=== PATIENT | female | born 1990 | race Caucasian/White ===

== ENCOUNTER 2018-12-05 13:46 | Emergency (ER) | payer OTHER ==
[~2018-12-05] VITALS: Ht 157.5 cm; Wt 65.1 kg
[~2018-12-05 13:46] MED LIST: CYCL10TA7 PO; DICY10CA40 PO; IBUP-1542 PO; NO MEDS; OMEP20CA9 PO; RANI150T35 PO; TRAM50TA2 PO; ZOF8 PO
[2018-12-05 13:50] VITALS: Ht 157.5 cm; Wt 65.1 kg
[2018-12-05] MEDS ORDERED: morphine 2 MG INJ IV STA (14:12)
[2018-12-05] MEDS ORDERED: ONDANSETRON 4 MG INJ IV STA (14:12)
[2018-12-05] MEDS ORDERED: SOD CHLORIDE 0.9% 1,000 ML IV STA (14:12)
[2018-12-05] MEDS ORDERED: FAMOTIDINE 20 MG INJ IV STA (14:12)
--- NOTE | 2018-12-05 15:20 | ERD ---
ER Documentation Chief Complaint Chief Complaint RUQ AP x1 day w/ n/v/d today. hx of gallstones HPI 28-year-old female presents with generalized abdominal pain that she is had for 1 day however she states she has chronic abdominal pain has a history of gallstones. She is had some nausea and vomiting as well as diarrhea. No fever. No alleviating or exacerbating factors. Denies possibility of . No dysuria hematuria or frequency. ROS All systems reviewed and are negative except as per history of present illness. Medications Home Meds Active Scripts Dicyclomine HCl (Dicyclomine HCl) 10 Mg Capsule, 10 MG PO TID PRN for ABDOMINAL CRAMPING, #20 CAP Prov:ALEC NIETO PA-C 12/05/18 Ibuprofen* (Motrin*) 600 Mg Tab, 600 MG PO Q6, #20 TAB Prov:NUHA DUKE MD 01/13/16 Cyclobenzaprine Hcl* (Cyclobenzaprine Hcl*) 10 Mg Tablet, 10 MG PO TID, #15 TAB Prov:NUHA DUKE MD 01/13/16 Tramadol HCl (Tramadol HCl) 50 Mg Tablet, 50 MG PO Q4 PRN for PAIN, #20 TAB Prov:NUHA DUKE MD 01/13/16 Ranitidine Hcl* (Zantac*) 150 Mg Tablet, 150 MG PO BID PRN for PAIN, #30 TAB Prov:CYN WEI PA-C 07/29/15 Omeprazole* (Prilosec*) 20 Mg Capsule.dr, 20 MG PO DAILY, #30 CAP Prov:CYN WEI PA-C 07/29/15 Ondansetron Hcl* (Zofran* ODT) 8 mg -ODT Tab.disper, 8 MG PO Q6 PRN for NAUSEA AND/OR VOMITING, #10 TAB Prov:CYN WEI PA-C 07/29/15 Reported Medications [No Meds] No Conflict Check 05/17/10 Allergies Allergies: Coded Allergies: No Known Drug Allergy (Verified Allergy, Unknown, 07/29/15) PMhx/Soc History of Surgery: No Anesthesia Reaction: No Hx Neurological Disorder: No Hx Respiratory Disorders: No Hx Cardiac Disorders: No Hx Psychiatric Problems: No Hx Miscellaneous Medical Probl: No Hx Alcohol Use: No Hx Substance Use: No Hx Tobacco Use: No FmHx Family History: No diabetes Physical Exam Vitals Vital Signs Date Temp Pulse Resp B/P (MAP) Pulse Ox O2 O2 Flow FiO2 Time Delivery Rate 12/05/18 99.1 94 16 142/73 98 13:50 (96) Physical Exam INITIAL VITAL SIGNS: Reviewed by me RESPIRATORY: Clear to auscultation bilaterally. Symmetric chest wall rise. No wheezing or rales. No accessory muscle use. CV: Regular rate and rhythm. No murmurs, rubs, or gallops. ABDOMEN: Soft, non-distended. Nontender. Negative [place]. Negative McBurneys point tenderness. No CVA tenderness bilaterally. No guarding. No rebound. Result Diagram: 12/05/18 1418 12/05/18 1418 Results 24 hrs Laboratory Tests Test 12/05/18 14:18 12/05/18 14:23 White Blood Count 7.9 10^3/ul Red Blood Count 4.30 10^6/ul Hemoglobin 12.2 g/dl Hematocrit 36.9 % Mean Corpuscular Volume 85.8 fl Mean Corpuscular Hemoglobin 28.4 pg Mean Corpuscular Hemoglobin Concent 33.1 g/dl Red Cell Distribution Width 12.1 % Platelet Count 341 10^3/UL Mean Platelet Volume 9.6 fl Immature Granulocytes % 0.100 % Neutrophils % 56.1 % Lymphocytes % 31.3 % Monocytes % 9.9 % Eosinophils % 2.2 % Basophils % 0.4 % Nucleated Red Blood Cells % 0.0 /100WBC Immature Granulocytes # 0.010 10^3/ul Neutrophils # 4.4 10^3/ul Lymphocytes # 2.5 10^3/ul Monocytes # 0.8 10^3/ul Eosinophils # 0.2 10^3/ul Basophils # 0.0 10^3/ul Nucleated Red Blood Cells # 0.0 10^3/ul Urine Color YELLOW Urine Clarity CLOUDY Urine pH 8.0 Urine Specific [place] 1.015 Urine Ketones NEGATIVE mg/dL Urine Nitrite NEGATIVE mg/dL Urine Bilirubin NEGATIVE mg/dL Urine Urobilinogen NEGATIVE mg/dL Urine Leukocyte Esterase NEGATIVE [place]/ul Urine Microscopic RBC 1 /HPF Urine Microscopic WBC 8 /HPF Urine Squamous Epithelial Cells FEW /HPF Urine Hemoglobin NEGATIVE mg/dL Urine Glucose NEGATIVE mg/dL Urine Total Protein NEGATIVE mg/dl Sodium Level 142 mmol/L Potassium Level 3.7 mmol/L Chloride Level 105 mmol/L Carbon Dioxide Level 28 mmol/L Anion Gap 9 Blood Urea Nitrogen 12 mg/dl Creatinine 0.69 mg/dl Est Glomerular Filtrat Rate mL/min > 60 mL/min Glucose Level 111 mg/dl Calcium Level 9.9 mg/dl Total Bilirubin 0.4 mg/dl Direct Bilirubin 0.00 mg/dl Indirect Bilirubin 0.4 mg/dl Aspartate Amino Transf (AST/SGOT) 22 IU/L Alanine Aminotransferase (ALT/SGPT) 29 IU/L Alkaline Phosphatase 90 IU/L Total Protein 8.2 g/dl Albumin 4.5 g/dl Globulin 3.70 g/dl Albumin/Globulin Ratio 1.21 Lipase 205 U/L POC Beta HCG, Qualitative NEGATIVE Current Medications Medications Dose Sig/[place] Start Time Status Last (Trade) Ordered Route PRN Stop Time Admin Dose Reason Admin Sodium 1,000 ml @ Q1H STAT 12/05/18 DC 12/05/18 Chloride 1,000 mls/hr IV 14:12 14:22 12/05/18 15:11 Morphine 2 mg ONCE STAT 12/05/18 DC 12/05/18 Sulfate IV 14:12 14:22 (morphine) 12/05/18 14:14 Ondansetron 4 mg ONCE STAT 12/05/18 DC 12/05/18 HCl (Zofran IV 14:12 14:22 Inj) 12/05/18 14:14 Famotidine 20 mg ONCE STAT 12/05/18 DC 12/05/18 (Pepcid Iv) IV 14:12 14:22 12/05/18 14:14 Procedures/MDM The differential diagnosis includes but is not limited to appendicitis, cholelithiasis, cholecystitis, pancreatitis, hepatitis, gastritis, peptic ulcer disease, bowel obstruction, diverticulitis, renal disease including stones, torsion, AAA, pyelonephritis, and others. Laboratory analysis shows no evidence of acute emergent abnormality. No evidence of significant leukocytosis suggesting systemic infection or severe anemia. No evidence of acute renal or liver failure, no evidence of severe alkalosis or acidosis. CT negative. Patient discharged with Bentyl. Patient counseled regarding my diagnostic impression and care plan. Prior to discharge all questions answered. Pt agrees with treatment plan and understands strict return precautions. Pt is instructed to follow up with primary care provider within 24-48 hours. Precautionary instructions provided including instructions to return to the ER if not improving or for any worsening or changing symptoms or concerns. Departure Diagnosis: Primary Impression: Abdominal pain Condition: Stable Patient Instructions: Abdominal Pain Additional Instructions: Call your primary care doctor TOMORROW for an appointment during the next 1-2 days.See the doctor sooner or return here if your condition worsens before your appointment time. ALEC NIETO PA-C Dec 05, 2018 15:20
[2018-12-05 15:26] VITALS: BP 116/62; PULSE 72; RESP 18
== END 2018-12-05 15:56 | disposition home or self-care (01) ==
LOC: FTE 13:46
DX: R10.11 Right upper quadrant pain (principal); R11.2 Nausea with vomiting, unspecified
CPT/HCPCS: 36415; 74176; 80053; 81001; 81025; 83690; 85025; 96361; 96374; 96375; J2270; J2405; J7030; Z7502; Z7610

== ENCOUNTER 2019-01-09 13:49 | Emergency (ER) | payer OTHER ==
[~2019-01-09] VITALS: Wt 78.9 kg
[~2019-01-09 13:49] MED LIST changes: +ASPI1TAB31 PO; +BUTA1CAP38 PO; +NITR-58 PO; +RANI-535 PO; -RANI150T35 PO
[2019-01-09 13:54] VITALS: BP 126/63; PULSE 71; RESP 18
[2019-01-09] MEDS ORDERED: KETOROLAC 15 MG INJ IM STA (15:27)
== END 2019-01-09 15:39 | disposition home or self-care (01) ==
LOC: FTE 13:49 → E/R 15:39
DX: G44.209 Tension-type headache, unspecified, not intractable (principal)
CPT/HCPCS: 81001; 84703; 96372; J1885; Z7502

== ENCOUNTER 2019-01-09 15:22 | Emergency (ER) | payer OTHER ==
[~2019-01-09] VITALS: Ht 157.5 cm; Wt 89.0 kg
[2019-01-09 15:25] VITALS: BP 149/83; PULSE 84; RESP 18; Ht 157.5 cm; Wt 89.0 kg
== END 2019-01-09 17:36 | disposition home or self-care (01) ==
LOC: FTE 15:22
DX: R51 Headache (principal); Z79.82 Long term (current) use of aspirin
CPT/HCPCS: 99283